=== PATIENT | female | born 1945 | race Caucasian/White ===

== ENCOUNTER 2025-03-31 17:25 | Emergency (ER) | payer MEDICARE, OTHER ==
[~2025-03-31] VITALS: Ht 162.6 cm; Wt 74.8 kg
[~2025-03-31 17:25] MED LIST: ACET-868 PO
[2025-03-31 17:32] VITALS: TEMP 98
[2025-03-31 18:30] LABS: PLATELET COUNT (AUTO) 272 K/uL (150-450); RED BLOOD CELL COUNT(AUTO) 3.96 MIL/uL (4.0-5.2); RED CELL DISTRIBUTION WIDTH 13.8 % (11.5-15.0); WHITE BLOOD COUNT (AUTO) 5.2 K/uL (4.3-11.0)
[2025-03-31 18:37] LABS: CALCIUM, SERUM 8.7 mg/dL (8.5-10.1); CREATININE 0.8 mg/dL (0.6-1.3); SODIUM SERUM 138 mmol/L (136-145); UREA NITROGEN, BLOOD 21 mg/dL (7-18)
[2025-03-31] MEDS ORDERED: IOHEXOL-300 100 ML VIAL IV ONE (18:53)
[2025-03-31] MEDS ORDERED: IV NS 0.9% 250 ML IV ONE (18:53)
[2025-03-31 21:48] VITALS: BP 155/84; O2SAT 97
== END 2025-03-31 21:48 | disposition home or self-care (01) ==
LOC: ER 17:29
DX: M54.2 Cervicalgia (principal); E04.1 Nontoxic single thyroid nodule; Z85.3 Personal history of malignant neoplasm of breast; Z88.5 Allergy status to narcotic agent; Z86.69 Personal history of other diseases of the nervous system and sense organs; Z86.59 Personal history of other mental and behavioral disorders
CPT/HCPCS: 99285; 70491; 93005; 74177; 85025; 80048; 36415; 84484; J7050; Q9967